=== PATIENT | male | born 1965 | race Two or more races ===

== ENCOUNTER → 2022-03-24 | Outpatient (CLI) | payer OTHER, SELFPAY ==
[2022-03-24 13:53] LABS: M R Staph aureus DNA By PCR Negative (Negative); Probe Check PASS; Specimen Processing Control PASS; Staph aureus DNA By PCR NEGATIVE (Negative)
== END | disposition home or self-care (01) ==
LOC: LABSPEC 11:41
PROVIDERS: PCP Family Medicine Geriatric Medicine; Visit Provider Family Medicine Geriatric Medicine
DX: L03.312 Cellulitis of back [any part except buttock and flank] (principal); L03.90 Cellulitis, unspecified; L72.3 Sebaceous cyst
CPT/HCPCS: 87070; 87205; 87640